=== PATIENT | female | born 1950 ===

== ENCOUNTER 2018-08-01 02:57 | Observation (INO) | payer MEDICARE, BC ==
[2018-08-01] VITALS (13 sets, daily range): BP systolic 110–133; BP diastolic 50–71
[~2018-08-01] VITALS: Ht 165.1 cm; Wt 51.7 kg
[~2018-08-01 02:57] MED LIST: LINA145C PO; TRAM-420 PO; ZOLP-350 PO
[2018-08-01] MEDS ORDERED: MIDAZOLAM 2 MG/2 ML VIAL IVP PRN (09:00)
[2018-08-01] MEDS ORDERED: ACETAMINOPHEN 500 MG TAB PO ONE (09:00)
[2018-08-01] MEDS ORDERED: ceFAZolin(*) 2GM/D5W 50ML 50 ML IVPB ONE (09:00)
[2018-08-01] MEDS ORDERED: FAMOTIDINE 20 MG TAB PO ONE (09:00)
[2018-08-01] MEDS ORDERED: PREGABALIN 75 MG CAPSULE PO ONE (09:00)
[2018-08-01] MEDS ORDERED: NORMOSOL R SOLN(*) 1000 ML BAG 1,000 ML IV PRN (09:00)
[2018-08-01] MEDS ORDERED: LIDOCAINE/SOD BICARB 8.4% SYR ID ONE (09:00)
[2018-08-01] MEDS ORDERED: LIDOCAINE MPF 1% 5 ML VIAL ONE (09:13)
[2018-08-01] MEDS ORDERED: fentaNYL CITR 250 MCG/5 ML AMP ONE (09:13)
[2018-08-01] MEDS ORDERED: PROPOFOL EMUL(*) 10MG/ML 20 ML 20 ML ONE (09:17)
[2018-08-01] MEDS ORDERED: KETAMINE HCL 200 MG/20 ML MDV ONE (09:34)
[2018-08-01] MEDS ORDERED: DEXAMETHASONE SOD PHOS 10MG/ML ONE (09:35)
[2018-08-01] MEDS ORDERED: ONDANSETRON 4 MG/2 ML VIAL ONE (09:36)
[2018-08-01] MEDS ORDERED: SUGAMMADEX SOD 200 MG/2 ML SDV ONE (09:46)
[2018-08-01] MEDS ORDERED: ROPIVACAINE 0.2% 20 ML VIAL ONE (10:02)
[2018-08-01] MEDS ORDERED: fentaNYL CITR 100 MCG/2 ML AMP ONE ×2 (11:40→12:12)
[2018-08-01] MEDS ORDERED: MAGNESIUM HYDROXIDE* 30ML UDCP PO PRN (12:00)
[2018-08-01] MEDS ORDERED: diphenhydrAMINE 25 MG CAP PO PRN (12:00)
[2018-08-01] MEDS ORDERED: ACETAMINOPHEN 500 MG TAB PO PRN (12:00)
[2018-08-01] MEDS ORDERED: BENZOCAINE/MENTHOL 1 EACH LOZG PO PRN (12:00)
[2018-08-01] MEDS ORDERED: FLUSH 10 ML SYR IVP PRN (12:00)
[2018-08-01] MEDS ORDERED: ACETAMINOPHEN(*)1000 MG/100 ML 100 ML IVPB PRN (12:00)
[2018-08-01] MEDS ORDERED: oxyCODONE HCL 5 MG CAP PO PRN (12:00)
[2018-08-01] MEDS ORDERED: BISACODYL 10 MG SUPP PR PRN (12:00)
[2018-08-01] MEDS ORDERED: ONDANSETRON 4 MG/2 ML VIAL IVP PRN (12:00)
[2018-08-01] MEDS ORDERED: LR(*) 1000 ML BAG 1,000 ML IV PRN (12:00)
[2018-08-01] MEDS ORDERED: HYDROmorphone HCL 2 MG/ML SDV IVP PRN (12:00)
[2018-08-01] MEDS: APAP/HYDROCODONE 325/5 TAB PO PRN ×3 (13:12→21:45)
--- NOTE | 2018-08-01 14:16 | Hospitalist Consultation ---
History of Present Illness Requesting Physician Dr. Luevano Reason for Consult Medical Management Chief Complaint s/p lumbar surgery History of Present Illness She was admitted s/p lumbar surgery. It is reported the surgery went well and without complication. History Problems: (1) Constipation Status: Chronic Home Meds Reported Medications Tramadol Hcl (TRAMADOL HCL) 50 Mg Tablet, 50 MG PO BID, TAB 07/25/18 Zolpidem Tartrate (AMBIEN) 10 Mg Tablet, 0.5 TAB PO QHS PRN for SLEEP, TAB 07/25/18 Linaclotide (LINZESS) 145 Mcg Capsule, 145 MCG PO DAILY PRN for CONSTIPATION, CAPSULE 07/25/18 Allergies: Coded Allergies: Sulfa (Sulfonamide Antibiotics) (Verified Allergy, Intermediate, ITCHING ALL OVER, 07/25/18) nitrofurantoin (Verified Allergy, Intermediate, HIVES AND JOINT PAIN, 07/25/18) procaine (Verified Allergy, Mild, OVERLY SEDATED, 07/25/18) Patient History: FH: [facility] (my[facility] infarction) FATHER, Rectal cancer MOTHER, Hx Smoking: No Smoking Status: Never Smoker Caffeine Intake: Coffee Caffeine/Cups Per Day: 2 CUPS DAILY, SODA TWICE A WEEK Hx Alcohol Use: No Hx Substance Use Disorder: No Social Drug Use: Never History of IV Drug Use: No Review of Systems All Systems Reviewed/Normal: Yes, Except as Noted Exam Vital Signs Vital Signs Date Time Temp Pulse Resp B/P (MAP) Pulse Ox O2 Delivery O2 Flow Rate FiO2 08/01/18 08:17 97.6 71 14 133/71 (91) 93 Room Air General Appearance: Alert, Awake, No Acute Distress, Afebrile Neuro: No Gross deficits Cardiovascular: Regular Rate and Rhythm Respiratory: No Respiratory Distress, Clear to Auscultation Psych: Alert & Oriented X3, Appropriate Mood & Affect Assessment and Plan Problems: (1) Status post lumbar surgery Status: Acute Assessment & Plan: Followed by Dr. Luevano. (2) Constipation Status: Chronic Assessment & Plan: She is on chronic treatment with Linzess prn. She does not want to take this medication during admission. She would like to try stool softeners to help post-operatively. Venous Thromboembolism Antithrombotics Is Pt On Any Antithrombotics?: No Prophylaxis Tx Contraindicated Pharmacological Contraindicati: Surgical Contraindication ASHLEY CHAVES VEHICLE DISMANTLER Aug 01, 2018 14:16
[2018-08-01] MEDS: DIAZEPAM 5 MG TAB PO PRN ×2 (15:31→21:45)
--- NOTE | 2018-08-01 16:08 | NUR ---
Physical Therapy Impression PT narendra completed. Pt notes that her legs feel weak, but previous symptoms before surgery are improving. Pt completed log roll training and bridging for bed mobility with SBA/CGA and sit to/from stand transfers with SBA/CGA. Pt tolerated ambulation in room x 40' with FWW and SBA/CGA and is agreeable to ambulating with nursing staff frequently through the evening. PT to address stairs to enter home and longer functional ambulation distance tomorrow morning, prior to anticipated discharge home. Physical Therapy Goals 1. Pt to be SBA/CGA for bed mobility and supine to/from sit transfers 2. Pt to be SBA/CGA for sit to/from stand transfers 3. Pt to ambulate x 150' with least restrictive device and SBA/Modified indep 4. Pt to kath up/down platform step x 2 reps with rail and SBA/Modified indep Patient's Goals
--- NOTE | 2018-08-01 17:04 | RADIOLOGY IMAGING REPORT ---
FACILITY: [facility] PATIENT NAME: Susanne Mckeon : 1950 MR: [id number] V: [id number] EXAM DATE: ORDERING PHYSICIAN: ASTER CHRISTIE TECHNOLOGIST: Location: [facility] Patient: Susanne Mckeon : 1950 Visit/Account:[id number] Date of Sevice: 08/01/2018 L-SPINE >4 VIEWS Indication: Low back pain. Procedure: Fluoroscopic guidance was provided for orthopedic surgery. Fluoroscopy time: AK: 1.2 mGy Number of images: 1 images of the lumbar spine were obtained. Findings: Fluoroscopic guidance provided for lumbar surgery. IMPRESSION: Fluoroscopic guidance for lumbar surgery with submission of a solitary lateral intraopera tive lumbar spine image. Report Dictated By: Vikash Unger MD at 08/01/2018 4:58 PM Report E-Signed By: Vikash Unger MD at 08/01/2018 4:59 PM WSN:[id number]
[2018-08-01] MEDS: ceFAZolin(*) 2GM/D5W 50ML 50 ML IVPB SCH (17:34)
[2018-08-01] MEDS ORDERED: DOCUSATE SODIUM 100 MG CAP PO SCH (21:00)
[2018-08-01] MEDS: DOCUSATE SODIUM 100 MG CAP PO SCH (21:45)
--- NOTE | 2018-08-02 01:50 | OPERATIVE REPORT 1 ---
EVENT DATE: August 01, 2018 SURGEON: Anant Luevano MD ANESTHESIOLOGIST: August Dorsey MD ANESTHESIA: General endotracheal anesthesia. FIREARMS EXPERT: Mamadou Inman PA-C PREOPERATIVE DIAGNOSIS Lumbar spinal stenosis, L3-L4, L4-L5, and L5-S1. POSTOPERATIVE DIAGNOSIS Lumbar spinal stenosis, L3-L4, L4-L5, and L5-S1. PROCEDURE PERFORMED L3 to S1 laminectomy. INTRAVENOUS FLUIDS 1300 mL. ESTIMATED BLOOD LOSS 80 mL. IMPLANTS None. SPECIMENS None. DRAINS None. COMPLICATIONS None. DISPOSITION Postanesthesia care unit. INDICATIONS FOR SURGERY Ms. Mckeon is a 68-year-old female who presented with a complaint of left greater than right radicular symptoms in L4 and L5 distribution as well as in S1, again, left greater than right. She had L4 and L5 injections which gave her temporary relief for just a few hours, and then symptoms returned. The pain again is primarily in an L4 and L5 distribution down the left leg. Her physical examination was remarkable for a positive straight leg raising maneuver on the left, reproducing symptoms in the L4 and L5 distribution. She had diminished sensation in all distributions on the right with the exception of the tibial nerve, and on the left she had diminished sensation in sural, superficial peroneal, and tibial nerves. Her imaging studies showed severe stenosis in the lateral recesses, particularly at L3-L4 and L4-L5. Secondary to failure of nonsurgical care and ongoing pain, Ms. Mckeon was offered and elected to undergo L3 to S1 laminectomy. Prior to surgery, I explained in detail to the patient the possible risks of surgery. These risks include bleeding, infection, damage to surrounding structures, nerve root injury, spinal fluid leak, persistent and/or worsening pain, meningitis, , blindness, sexual dysfunction, autonomic nervous system dysfunction, and other unforeseen medical and surgical complications. An understanding that in general, spinal surgery is more predictive at improving extremity deformity than axial spine pain was stressed. DESCRIPTION OF PROCEDURE On the day of surgery, the patient was met in the preoperative hold area and all questions were answered. The operative site was identified and marked by myself. The patient was brought in good condition to the operating room, and after succumbing to anesthesia was positioned in the prone position on a Triston table. All bony protuberances and soft tissues were well padded in the standard fashion. Care was taken to maintain appropriate perfusion pressures during anesthesia. Preoperative antibiotics were administered according to the appropriate timing schedule. At the conclusion of the procedure, sponge and needle counts were correct x2. A final time-out was undertaken by members of the operating team to confirm correct patient, correct levels, and correct surgery. She was then prepped and draped in the standard sterile orthopedic fashion, and a vertical incision was made overlying the intended surgical levels. Sharp dissection was carried out down to the lumbodorsal fascia, which was incised on both sides of the spinous processes. A lateral radiograph was obtained to confirm appropriate spinal level. Soft tissues were elevated off the posterior elements in a subperiosteal manner at the L3, L4, and L5 laminas. A self-retaining retractor was placed and distracted. A Leksell rongeur and RunMyProcess bone cutter were used to remove the spinous processes of L3, L4, and L5. The lamina was thinned down the midline with the Leksell rongeur and a high-speed bur. The canal was then entered by undermining the superior insertion of the ligamentum flavum from the inferior aspect of the L5 lamina. A Mayes elevator was used prior to use of the Kerrison punch to separate any dural adhesions from surrounding bone and soft tissue. A midline decompression was performed with a #4 and #4 Kerrison rongeur. We then performed bilateral lateral recess decompressions with #3 and #4 Kerrisons, ensuring to decompress the nerve root shoulders and the traversing nerve roots at every level. Significant amounts of thickened ligamentum flavum and overgrown facet were removed during this portion of the procedure. A Karl elevator and a Dunn probe were then used to palpate over the shoulder of each nerve root and out the foramina of every involved nerve root. An excellent decompression had been obtained both in the foramina of all nerve roots involved as well as in the lateral recesses. Meticulous hemostasis was then obtained by using FloSeal and surgical patties in the lateral gutters, and the wound was then irrigated with copious sterile saline solution. The wound was closed in layers using a running suture for the deep fascia, interrupted inverted sutures for the subcutaneous tissue, and a remaining subcuticular skin stitch. Sponge and needle counts were correct x2. POSTOPERATIVE CARE PLAN The patient will remain in the hospital until she meets discharge criteria. She will follow up with me in two weeks' time for wound check and examination. ERIC
[2018-08-02 02:03] VITALS: BP 103/61
[2018-08-02] MEDS: ceFAZolin(*) 2GM/D5W 50ML 50 ML IVPB SCH ×2 (02:03→08:52)
[2018-08-02] MEDS: APAP/HYDROCODONE 325/5 TAB PO PRN ×2 (02:03→11:28)
[2018-08-02] MEDS ORDERED: LOR5/325 PO (06:54)
[2018-08-02] MEDS ORDERED: DIA5 PO (06:58)
[2018-08-02] MEDS ORDERED: DOCU240C84 PO (06:59)
[2018-08-02 07:23] VITALS: BP 120/61
[2018-08-02] MEDS: DOCUSATE SODIUM 100 MG CAP PO SCH (08:52)
[2018-08-02] MEDS: DIAZEPAM 5 MG TAB PO PRN (09:06)
--- NOTE | 2018-08-02 09:21 | Hospitalist Progress Note ---
Subjective Progress Notes Subjective She has no complaints this morning. She would like to go home today. Patient Complains of: Cardiovascular: No: Chest Pain Respiratory: No: Shortness of Breath Physical Exam Vital Signs Date Time Temp Pulse Resp B/P (MAP) Pulse Ox O2 Delivery O2 Flow Rate FiO2 08/02/18 07:23 97.7 70 16 120/61 (80) 96 Room Air 08/02/18 02:03 1.5 Intake and Output 08/02/18 07:00 Intake Total 2875 ml Balance 2875 ml Intake Oral 220 ml IV Total 2655 ml # Voids 3 General Appearance: Alert, Awake, No Acute Distress, Afebrile Neuro: No Gross deficits Cardiovascular: Regular Rate and Rhythm Respiratory: No Respiratory Distress, Clear to Auscultation GI: Soft and Non-Tender Extremities: Warm, Perfused; No Edema Psych: Alert & Oriented X3, Appropriate Mood & Affect Assessment and Plan Problems: (1) Status post lumbar surgery Status: Acute Assessment & Plan: Followed by Dr. Luevano. (2) Constipation Status: Chronic Assessment & Plan: She is on chronic treatment with Linzess prn. She does not want to take this medication during admission. She would like to try stool softeners to help post-operatively. Exam Sepsis Risk: No Definite Risk ASHLEY CHAVES Aug 02, 2018 09:21
--- NOTE | 2018-08-02 10:38 | NUR ---
Physical Therapy Impression PT goals met including distance ambulation and up/down steps as needed for entry to home. Pt notes that she does feel confident for ambulation without an assistive device as well. Physical Therapy Goals 1. Pt to be SBA/CGA for bed mobility and supine to/from sit transfers 2. Pt to be SBA/CGA for sit to/from stand transfers 3. Pt to ambulate x 150' with least restrictive device and SBA/Modified indep 4. Pt to kath up/down platform step x 2 reps with rail and SBA/Modified indep Patient's Goals
[2018-08-02 10:51] VITALS: Ht 165.1 cm; Wt 51.7 kg
[2018-08-02 11:21] VITALS: BP 124/52
== END 2018-08-02 10:25 | disposition home or self-care (01) ==
LOC: OR 02:57 → MED 13:00
PROVIDERS: ADMIT Orthopaedic Surgery; ATTEND Orthopaedic Surgery
DX: M48.061 Spinal stenosis, lumbar region without neurogenic claudication (principal); M54.16 Radiculopathy, lumbar region; M48.07 Spinal stenosis, lumbosacral region; K59.09 Other constipation
CPT/HCPCS: 63030; 63035; 72020; 97116; 97161; 97530; A9270; G0378; J1100; J2001; J2405; J2704; J2795; J3010; J3490; J0690